=== PATIENT | male | born 1960 | race Caucasian/White ===

== ENCOUNTER 2016-11-03 16:11 | Emergency (ER) | payer MEDICAID, OTHER ==
--- NOTE | 2016-11-03 16:15 | EDPHY ---
H & P HPI/ROS: CHIEF COMPLAINT: Syncope HISTORY OF PRESENT ILLNESS: This patient is a 56 year old male arriving via EMS following sequential syncopal episodes this afternoon shortly prior to arrival. He walked to lunch this afternoon, and had two beers and a shot over two and a half hours, which he states is not much more than his usual social alcohol consumption. He stayed hydrated during this time as well, but did not eat much. He did also have one hit of marijuana today. 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 He next woke up on the floor, diaphoretic after he stood. He states a witness reported he may have struck his head when he fell. He tried to walk to a bench to sit and recover, but passed out again before he made it there. Paramedics arrived and attempted to help him walk, but passed out a third time and came to on his knees with the paramedics still holding his arms. He endorses lightheadedness and mild soreness on the left side of his head and neck. He denies history of syncope of seizures. He denies chest pain, shortness of breath , abdominal pain, or other associated symptoms. He is not currently dizzy. REVIEW OF SYSTEMS: A ten point review of systems was performed and is negative with the exception of the items mentioned in the HPI. - Medical/Surgical History PMH: Denies. 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 . Lives in [facility]. No tobacco use. Occasional marijuana use. Social alcohol use. - Physical Exam Exam: General Appearance: Alert. Vital signs reviewed. Head: Normocephalic, atraumatic. Eyes: Pupils equal and round, no conjunctival injection, no discharge. Anicteric. ENT, Mouth: No hemotympanum. Mucous membranes are moist, no oropharyngeal erythema or edema. Neck: No midline tenderness. No lymphadenopathy, supple. Respiratory: Lungs are clear to auscultation; no wheezes, rales, or rhonchi. Cardiovascular: Regular rate and rhythm; no murmur, rub, or gallop. Gastrointestinal: Abdomen is soft and nontender, no masses or organomegaly, bowel sounds normal. Skin: Warm and dry, no rashes on exposed skin, normal color. Back: Nontender to palpation over the thoracolumbar spine. No CVAT. Extremities: No lower extremity edema, no calf tenderness or swelling. Neurological: Alert and oriented. Moving all four extremities easily and equally. Cranial nerves II through XII are examined and are intact (visual acuity not tested). Strength is 5 over 5 bilaterally with testing of all major motor groups. Sensation is intact to light touch over all 4 extremities. Deep tendon reflexes are 2+ in the biceps and knees bilaterally. [id number] is performed accurately. Psychiatric: Normal affect. Constitutional: Initial Vital Signs Temperature (C) 36.8 C 11/03/16 16:24 Heart Rate 69 11/03/16 16:24 Respiratory Rate 16 11/03/16 16:24 Blood Pressure 132/97 H 11/03/16 16:24 O2 Sat (%) 96 11/03/16 16:24 O2 Delivery Mode Room Air Allergies/Adverse Reactions: No Allergies [NKDA] Allergy (Verified 11/03/16 16:23) Home Medications: Medication Instructions Recorded NK [No Known Home Meds] 11/03/16 Medical Decision Making - Diagnostics EKG Interpretation: The 12 lead EKG was interpreted by myself. See hard copy and/or "tracemaster" electronic copy for interpretation. Sinus rhythm, rate 68. ED Course/Re-evaluation: 56 year old male presents following three brief syncopal episodes this afternoon. EKG normal. Labs within normal limits. ETOH 43 mg/dL. I have not found evidence of injury as a result of his syncope. The etiology of his syncope remains unknown--perhaps a combination of ETOH, marijuana and lack of food resulting in vasovagal syncope. No arrhythmia noted while in ED. Normal neuro exam. He does not appear dehydrated. By description, this was not a seizure. D-dimer normal, no RF for PE, PE low prob based on Wells criteria. He was offered hospitalization for cardiac monitoring and observation. He understands that it is not known why he fainted. He understands that a cardiac arrhythmia could be fatal. He is able to make his own medical decisions and declines hospitalization. Outpatient FU is recommended. Plan to discharge home in good condition. He will follow up with [facility] for further evaluation. Return precautions discussed. The patient is comfortable with this plan. - Data Points Laboratory Results: Laboratory Results 11/03/16 16:15 11/03/16 16:15 Departure - Departure Disposition: Home, Routine, Self-Care Clinical Impression: Syncope Qualifiers: Syncope type: unspecified Qualified Code(s): R55 - Syncope and collapse Condition: Good Instructions: Syncope (ED) Additional Instructions: 1. Follow up with the [facility] next week for further evaluation of your symptoms. 2. Return to the Emergency Department for repeated episodes of fainting, fever, vomiting, weakness or numbness, or other worsening of condition. Referrals: [facility],. [Clinic] - As per Instructions Report Scribed for: Dixie Germain Report Scribed by: Carli Duggan Date of Report: 11/03/16 Time of Report: 16:50 Physician Review and Approval Statement: 11/03/16 16:15 Portions of this note were transcribed by the behavioral medical director. I, Dr. Dixie Germain, personally performed the history, physical exam, and medical decision- making; and confirmed the accuracy of the information in the transcribed note.
--- NOTE | 2016-11-03 16:21 | CPEKG ---
Heart Rate: 68 RR Interval: 882 P-R Interval: 164 QRSD Interval: 98 QT Interval: 400 QTC Interval: 426 P [place]: 35 QRS [place]: 9 T Wave [place]: 23 EKG Severity - NORMAL ECG - EKG Impression: SINUS RHYTHM Electronically Signed By: Dixie Germain 03-Nov-2016 18:00:19
[2016-11-03 16:28] VITALS: RESP 16
[2016-11-03 16:45] VITALS: TEMP 97.5
[2016-11-03 17:00] LABS: % IMMATURE GRANULYOCYTES 0.3 % (0.0-1.1); ABSOLUTE IMMATURE GRANULOCYTES 0.02 10^3/uL (0.00-0.10); ADD DIFF? NO; ADD MORPH? NO; ADD SCAN? NO; ATYPICAL LYMPHOCYTE FLAG 10 (0-99); FRAGMENT RBC FLAG 0 (0-99); HEMATOCRIT 46.9 % (40.0-51.0); HEMOGLOBIN 16.9 g/dL (13.7-17.5); LEFT SHIFT FLG 0 (0-99); LIPEMIA HEMOLYSIS FLAG 90 (0-99); MEAN CELL HEMOGLOBIN 32.9 pg (27.9-34.1); MEAN CELL VOLUME 91.2 fL (81.5-99.8); MEAN PLATELET VOLUME 10.3 fL (8.7-11.7); PLATELET CLUMPS FLAG 0 (0-99); PLATELET COUNT 242 10^3/uL (150-400); RED BLOOD CELL COUNT 5.14 10^6/uL (4.40-6.38); RED CELL DISTRIBUTION WIDTH 11.6 % (11.5-15.2)
[2016-11-03 17:08] LABS: ANION GAP 17 mEq/L (8-16); CALCIUM 9.8 mg/dL (8.5-10.4); CARBON DIOXIDE 15 mEq/l (22-31); CHLORIDE 106 mEq/L (97-110); CREATININE 1.1 mg/dL (0.7-1.3); ETHANOL SERUM 43 mg/dL (0-10); GLOMERULAR FILTRATION RATE > 60; GLUCOSE 89 mg/dL (70-100); POTASSIUM 3.6 mEq/L (3.5-5.2); SODIUM 138 mEq/L (134-144)
[2016-11-03 17:19] LABS: TROPONIN I < 0.012 ng/mL (0-0.034)
[2016-11-03 18:10] VITALS: BP 136/99; PULSE 69; O2SAT 99
== END 2016-11-03 18:10 | disposition home or self-care (01) ==
LOC: EDUNIT#
DX: R55 Syncope and collapse (principal)
CPT/HCPCS: G0480